=== PATIENT | female | born 1940 | race Caucasian/White ===

== ENCOUNTER 2023-09-06 12:39 | Emergency (ER) | payer MEDICARE, MEDICAID, SELFPAY ==
[2023-09-06 12:44] VITALS: BP 135/78; PULSE 94; RESP 18; TEMP 36.8; O2SAT 94; BMI 29.9
--- NOTE | 2023-09-06 12:53 | ED_ITS ---
HPI - Headache General Time Seen by Provider: 12:53 Date Seen: 09/06/23 Chief Complaint: Headache/Migraine Stated Complaint: headache, nausea Time Seen by Provider: 09/06/23 12:52 Source: patient, family and RN notes reviewed Mode of arrival: ambulatory Limitations: no limitations History of Present Illness HPI Narrative: Clarice is a very pleasant 82-year-old female with history of hypertension, hyperlipidemia who comes to the emergency room for evaluation of a headache. As we talk she has multiple other complaints as well. In regards to the headache this started 3 weeks ago and is across her lower forehead behind her eyes. It is not associated with any visual changes. It does not appear to be positional and is the same as if she is standing or sitting. She notes that she has no energy with this. At home Tylenol sometimes does help. She has also been experiencing some abdominal discomfort. She shows this to be the lower aspect of her abdomen. It is associated with eating which seems to worsen the pain. She does not have a gallbladder. Her daughter accompanies her here today. Clarice is 3 weeks ago and the headache started at that time. She has not had fever or chills. She has had a runny nose. I cannot elicit any symptoms of a jaw claudication. No past history of vasculitis. Patient had been noncompliant with her high blood pressure medication. She was seen on WednesdayAugust [address] Cid at the [facility] as she had had increased urinary frequency. Urinalysis at that time was negative and daughter states that the culture was also negative. Clarice has not had any fever. She did restart her blood pressure medication that day. Related Data Home Medications ?Medication ?Instructions ?Recorded ?Confirmed docusate sodium 100 mg capsule 100 mg PO BID PRN constipation 09/06/23 09/06/23 lisinopril 10 1 tab PO DAILY 09/06/23 09/06/23 mg-hydrochlorothiazide 12.5 mg tablet rosuvastatin 5 mg tablet 5 mg PO QPM 09/06/23 09/06/23 triamcinolone acetonide 0.1 % 2 - 3 topical BID PRN 09/06/23 lotion Allergies Allergy/AdvReac Type Severity Reaction Status Date / Time No Known Drug Allergies Allergy Verified 09/06/23 12:49 Review of Systems Status of ROS: Reports: 10 or more systems reviewed and unremarkable except as noted in History and below Const: Reports: fatigue; Denies: fever or chills Eyes: Reports: other (Has noticed decreased vision over the last 6 months.); Denies: change in vision ENMT: Reports: nasal discharge; Denies: throat pain, neck pain or ear pain Cardio: Denies: chest pain, swelling of feet/ankles or shortness of breath with exertion Resp: Denies: shortness of breath or cough GI: Denies: abdominal pain, nausea, vomiting or diarrhea : Reports: urinary frequency; Denies: painful urination Musculo: Reports: extremity swelling (Ankle); Denies: back pain or neck pain Neuro: Reports: headache; Denies: numbness in extremities Psych: Denies: other (Mourning loss of her ) Endo: Reports: fatigue Exam Narrative: Exam Narrative: Alert and oriented. No acute distress. EOM is full. Pupils equal round. Head is atraumatic normocephalic. Eyebrow raise smile intact. Oral cavity with moist mucous membranes. Neck is supple without lymphadenopathy. Heart with regular rate and rhythm and lungs are clear. Abdomen soft. Patient had some complaints of mild discomfort with palpation throughout the entire abdomen. However easily distractible. Lower extremity show scant peripheral edema of ankles left slightly greater than right. Const: Vital Signs, click to edit/add: Vital Signs - 24 hr 09/06/23 12:44 09/06/23 16:25 Temperature 98.3 F Pulse Rate [Right Pulse Oximeter] 94 95 Respiratory Rate 18 20 Blood Pressure [Ri ght Upper Arm] 135/78 140/77 H Pulse Oximetry 94 93 Oxygen Delivery Me thod Room Air Room Air Documenting provider has reviewed patient's vital signs: yes Course Course ED Course: Differential diagnosis includes but is not limited to temporal arteritis, migraine, dehydration, urinary tract infection, depression. Will place an IV and draw labs to include CBC, comprehensive panel, CRP, sed rate, urinalysis. Will give dose of Toradol 15 mg IV and 500 mL of normal saline who also check EKG. Reevaluation(s) Reevaluation #1: Patient really did not have much relief with the Toradol. Fluids are now running. Will have patient undergo head CT at this time. Reevaluation #2: Head CT reassuring with no evidence of acute abnormality. Patient initially states that she is not feeling better but upon further discussion her headache had gone from a 6/10 to a 3 prior to her arrival after the use of Tylenol and now her headache is minimal and approximately a 1. She is wanting to go home. Vital Signs Vital signs: Initial Vital Signs Temperature 98.3 F 09/06/23 12:44 Temperature Source Temporal Artery Scan 09/06/23 12:44 Pulse Rate 94 09/06/23 12:44 Pulse Rhythm Regular 09/06/23 12:44 Pulse Strength 3+ Normal 09/06/23 12:44 Respiratory Rate 18 09/06/23 12:44 Blood Pressure 135/78 09/06/23 12:44 Blood Pressure Mean 97 09/06/23 12:44 Blood Pressure Position Sitting 09/06/23 12:44 Pulse Oximetry 94 09/06/23 12:44 Oxygen Delivery Method Room Air 09/06/23 12:44 Vital Signs Temperature 98.3 F 09/06/23 12:44 Pulse Rate 94 09/06/23 12:44 Respiratory Rate 18 09/06/23 12:44 Blood Pressure 135/78 09/06/23 12:44 Pulse Oximetry 94 09/06/23 12:44 Oxygen Delivery Method Room Air 09/06/23 12:44 Temperature 98.3 F 09/06/23 12:44 Pulse Rate 95 09/06/23 16:25 Respiratory Rate 20 09/06/23 16:25 Blood Pressure 140/77 H 09/06/23 16:25 Pulse Oximetry 93 09/06/23 16:25 Oxygen Delivery Method Room Air 09/06/23 16:25 Medications Administered Medications: Discontinued Medications Generic Name Dose Route Start Last Admin Trade Name Freq PRN Reason Stop Dose Admin Sodium Chloride 500 mls @ 500 mls/hr 09/06/23 13:15 09/06/23 16:23 0.9 % Sodium Chloride 500 Ml IV 09/06/23 14:14 Infused .Q1H ONE Infusion Ketorolac Tromethamine 15 mg 09/06/23 13:15 09/06/23 13:40 Ketorolac 15 Mg/Ml Inj IVP 09/06/23 13:16 15 mg ONCE ONE Administration MDM - Headache MDM Narrative Medical decision making narrative: 1. Headache-I am wondering if this is stress related. We have no evidence of a vasculitis with a normal sed rate. Head CT was reassuring with no evidence of tumor or intracranial bleed or other abnormality that is acute. Patient noted to be doing better after fluids with a discussion. Would ask that Clarice follow-up with her primary MD for further evaluation. She has a remote history of migraines starting at the age of 6 but as an older person has not really dealt with this. Her migraines in the past for what she described as ?electrical? with no pain but with flashers in her vision. Patient was given Toradol today. She may continue Tylenol at home as needed. Again recommend follow-up with her primary MD. 2. Abdominal pain-this occurs episodically and seems to be associated with eating. No blood in stool and labs are reassuring with a normal white count and CRP as well as liver function test. Recommend Pepcid twice a day if needed. Again, follow-up for worsening discomfort. 3. Disposition-home at this time. Seek medical attention for worsening symptoms. No evidence of UTI, acute coronary event or arrhythmia or stroke during today's visit. Medical Records Attestation: I reviewed the patient's medical records. Lab Data Attestation: I reviewed the patient's lab results. Labs: Lab Results 09/06/23 09/06/23 Range/Units 13:30 14:23 WBC 9.64 (4.50-11.00) K/uL RBC 4.80 (4.00-5.20) m/uL Hgb 13.5 (12.0-16.0) gm/dL Hct 43.0 (33.0-51.0) % MCV 90 (80-100) fL MCH 28 (26-34) pg MCHC 31 L (32-36) gm/dL RDW Coeff of Dara 13.2 (11.5-15.5) % Plt Count 232 (140-440) K/uL Neut % (Auto) 65.7 (42.0-72.0) % Lymph % (Auto) 23.7 (20-44) % [place] % (Auto) 9.0 (0.0-11.0) % Eos % (Auto) 1.1 (0.0-7.0) % Baso % (Auto) 0.4 (0.0-3.0) % Neut # (Auto) 6.33 (1.7-7.0) K/uL Lymph # (Auto) 2.28 (0.90-2.90) K/uL [place] # (Auto) 0.90 (0.00-0.90) K/UL Eos # (Auto) 0.11 (0.00-0.50) K/uL Baso # (Auto) 0.04 (0.00-0.30) K/uL Abs Immat Gran (auto) 0.01 (0.00-0.30) K/uL Imm/Tot Granulo (auto) 0.1 % ESR 13 (2-20) mm/hr Sodium 136 (135-149) mmol/L Potassium 4.2 (3.6-5.1) mmol/L Chloride 100 (96-114) mmol/L Carbon Dioxide 29 (20-32) mmol/L Anion Gap 7 (7-15) mEq/L BUN 21 (7-30) mg/dL Creatinine 0.8 (0.5-1.5) mg/dL Estimated Creat Clear 30.62 Estimated GFR 73 ml/min Glucose 115 (60-115) mg/dL Calcium 9.3 (8.4-10.6) mg/dL Total Bilirubin 0.6 (0.1-1.5) mg/dL AST 26 (12-35) U/L ALT 21 (4-35) U/L Alkaline Phosphatase 57 (40-150) U/L C-Reactive Protein < 0.5 L (0.5-1.0) mg/dL Total Protein 7.7 (6.0-8.3) g/dL Albumin 4.5 (3.3-5.0) g/dL Urine Color Yellow (Yellow) Urine Appearance Clear (Clear) Urine pH 5.5 (5.0-8.5) Ur Specific [place] 1.015 (1.000-1.030) Urine Protein Negative (Negative) Urine Glucose (UA) Negative (Negative) Urine Ketones Negative (Negative) Urine Blood Trace-lysed A (Negative) Urine Nitrite Negative (Negative) Urine Bilirubin Negative (Negative) Urine Urobilinogen 0.2 (0.2-1.0) Ur Leukocyte Esterase Negative (Negative) Urine RBC 0-2 (0-2) Urine WBC 0-2 (0-5) Ur Squamous Epith Cells None (None-Few) Urine Bacteria None (None) Imaging Data CT scan - head: Attestation: I have reviewed the pertinent imaging results. Radiologist's impression: Brain Parenchyma: Global cortical involutional changes. No acute infarct, acute intracranial hemorrhage, mass effect, or midline shift. Extensive periventricular and supraventricular white matter hypodensity, suggestive of chronic microvascular ischemic changes. Ventricles: No hydrocephalus. Mild ventricular enlargement, commensurate with the degree of cortical involutional changes and sulcal prominence. Extra-axial Spaces: No abnormal fluid collection. Paranasal sinuses: No significant mucosal thickening. Orbits: Unremarkable. Mastoid Sinuses: Unremarkable. Cranium: No acute fracture. Soft tissues: Unremarkable. Impression: No evidence of an acute intracranial process ECG Data Attestation: I personally reviewed and interpreted this ECG as follows: ECG interpretation date: 09/06/23 Interpretation: EKG by my read shows sinus rhythm at a rate of 84. There are Q-waves noted in 3 V3 V4 suggestive of an old infarct. Otherwise QT and MA intervals within normal limits. Discharge Plan Discharge Clinical Impression: Headache Patient Disposition: Home, Self-Care Condition: Improved Instructions: Acute Headache (ED) Additional Instructions: There was no evidence of a urinary tract infection on urinalysis. Electrolytes were within normal limits as was kidney function. Your inflammatory markers were normal. Head CT was normal. I would recommend rest, follow-up with your primary physician for recheck. Return to the emergency room for unusual fever, vomiting and worsening symptoms. I am truly sorry for your loss. Prescriptions: No Action docusate sodium 100 mg capsule 100 mg PO BID PRN (Reason: constipation) triamcinolone acetonide 0.1 % lotion 2 - 3 TOPICAL BID PRN lisinopril-hydrochlorothiazide 10-12.5 mg tablet 1 tab PO DAILY rosuvastatin 5 mg tablet 5 mg PO QPM Follow Up/Referrals: Mayito Yip MD [Primary Care Provider] - Stand Alone Forms: [employer] Info Instructions
[2023-09-06] MEDS: 0.9 % SODIUM CHLORIDE 500 ML 500 ML IV (13:34)
[2023-09-06 13:40] LABS: Basophils Absolute Auto 0.04 K/uL (0.00-0.30); Basophils Percent Auto 0.4 % (0.0-3.0); Eosinophils Absolute Auto 0.11 K/uL (0.00-0.50); Eosinophils Percent Auto 1.1 % (0.0-7.0); Hemoglobin* 13.5 gm/dL (12.0-16.0); Immature Granulocytes Abs Auto 0.01 K/uL (0.00-0.30); Immature Granulocytes Pct Auto 0.1 %; Lymphocytes Absolute Auto 2.28 K/uL (0.90-2.90); Lymphocytes Percent Auto 23.7 % (20-44); Mean Corpuscular HGB Conc 31 gm/dL (32-36); Mean Corpuscular Hemoglobin 28 pg (26-34); Mean Corpuscular Volume 90 fL (80-100); Neutrophils Absolute Auto 6.33 K/uL (1.7-7.0); Neutrophils Percent Auto 65.7 % (42.0-72.0); Platelet Count* 232 K/uL (140-440); RDW Coefficient of Variation % 13.2 % (11.5-15.5); White Blood Count* 9.64 K/uL (4.50-11.00)
[2023-09-06] MEDS: KETOROLAC 15 MG/ML inj IVP (13:40)
[2023-09-06 13:54] LABS: Albumin* 4.5 g/dL (3.3-5.0); Chloride* 100 mmol/L (96-114)
[2023-09-06 13:55] LABS: Potassium* 4.2 mmol/L (3.6-5.1); Sodium* 136 mmol/L (135-149)
[2023-09-06 13:57] LABS: Bilirubin Total* 0.6 mg/dL (0.1-1.5); Creatinine* 0.8 mg/dL (0.5-1.5); Est. Creatinine Clearance* 30.62; Estimated Glomerular Filt Rate 73 ml/min
[2023-09-06 13:58] LABS: Alanine Aminotransferase* 21 U/L (4-35); Alkaline Phosphatase* 57 U/L (40-150); Anion Gap 7 mEq/L (7-15); Aspartate Amino Transferase* 26 U/L (12-35); Blood Urea Nitrogen* 21 mg/dL (7-30); Calcium* 9.3 mg/dL (8.4-10.6); Carbon Dioxide* 29 mmol/L (20-32); Glucose* 115 mg/dL (60-115); Total Protein* 7.7 g/dL (6.0-8.3)
[2023-09-06 14:02] LABS: C Reactive Protein* < 0.5 mg/dL (0.5-1.0)
[2023-09-06 14:07] LABS: Slide Review Reflex No
[2023-09-06 14:32] LABS: Erythrocyte SedimentationRate* 13 mm/hr (2-20)
--- NOTE | 2023-09-06 14:34 | CRLHL7_ITS ---
For Patients: As a result of the Century Cures Act, medical imaging exams and procedure reports are released immediately into your electronic medical record. You may view this report before your referring provider. If you have questions, please contact your health care provider. Indication: PERSISTENT HEADACHES X3 WEEKS Technique: CT head without IV contrast Comparison: None Findings: Brain Parenchyma: Global cortical involutional changes. No acute infarct, acute intracranial hemorrhage, mass effect, or midline shift. Extensive periventricular and supraventricular white matter hypodensity, suggestive of chronic microvascular ischemic changes. Ventricles: No hydrocephalus. Mild ventricular enlargement, commensurate with the degree of cortical involutional changes and sulcal prominence. Extra-axial Spaces: No abnormal fluid collection. Paranasal sinuses: No significant mucosal thickening. Orbits: Unremarkable. Mastoid Sinuses: Unremarkable. Cranium: No acute fracture. Soft tissues: Unremarkable. Impression: No evidence of an acute intracranial process. Please note that all CT scans at this facility use dose modulation, iterative reconstruction, and/or weight-based dosing when appropriate to reduce radiation dose to as low as reasonably achievable. Dictated by Rick Mccall MD @ 09/06/2023 3:17:41 PM (Electronically Signed)
[2023-09-06 14:36] LABS: Appearance Urine Clear (Clear); Bilirubin Urine Negative (Negative); Blood Urine Trace-lysed (Negative); Color Urine Yellow (Yellow); Glucose Urine Negative (Negative); Ketones Urine Negative (Negative); Leukocyte Esterase Urine Negative (Negative); Nitrite Urine Negative (Negative); Protein Urine Negative (Negative); Specific Gravity Urine 1.015 (1.000-1.030); Urobilinogen Urine 0.2 (0.2-1.0); pH Urine 5.5 (5.0-8.5)
[2023-09-06 14:44] LABS: RBC Urine 0-2 (0-2); WBC Urine 0-2 (0-5)
[2023-09-06 16:25] VITALS: BP 140/77; PULSE 95; RESP 20; O2SAT 93
== END 2023-09-06 16:31 | disposition home or self-care (01) ==
PROVIDERS: Emergency Provider Family Medicine; PCP Surgery
DX: R51.9 Headache, unspecified (principal)
CPT/HCPCS: 36415; 70450; 80053; 81001; 85025; 85651; 86140; 93005; 96374; 99284; J1885; J7030

== ENCOUNTER 2023-09-22 11:24 | Outpatient (RCR) | payer BC, MEDICAID, SELFPAY | END 2024-08-22 11:15 | disposition home or self-care (01) | LOC: MOW 11:24 | PROVIDERS: PCP Surgery; Visit Provider Surgery | DX: Z76.0 Encounter for issue of repeat prescription (principal) | CPT/HCPCS: S5170 ==